=== PATIENT | female | born 1980 | race Caucasian/White ===

== ENCOUNTER 2022-08-25 16:49 | Outpatient (CLI) | payer OTHER, SELFPAY ==
[2022-08-25 22:54] LABS: Chloride* 100 mmol/L (96-114); Potassium* 4.1 mmol/L (3.6-5.1); Sodium* 136 mmol/L (135-149)
[2022-08-25 22:55] LABS: Basophils Absolute Auto 0.04 K/uL (0.00-0.30); Basophils Percent Auto 0.5 % (0.0-3.0); Eosinophils Absolute Auto 0.23 K/uL (0.00-0.50); Eosinophils Percent Auto 3.1 % (0.0-7.0); Hematocrit 38.5 % (33.0-51.0); Hemoglobin* 12.3 gm/dL (12.0-16.0); Immature Granulocytes Abs Auto 0.04 K/uL (0.00-0.30); Immature Granulocytes Pct Auto 0.5 %; Lymphocytes Absolute Auto 3.01 K/uL (0.90-2.90); Lymphocytes Percent Auto 40.4 % (20-44); Mean Corpuscular HGB Conc 32 gm/dL (32-36); Mean Corpuscular Hemoglobin 25 pg (26-34); Mean Corpuscular Volume 79 fL (80-100); Monocytes Percent Auto 5.2 % (0.0-11.0); Neutrophils Absolute Auto 3.74 K/uL (1.7-7.0); Neutrophils Percent Auto 50.3 % (42.0-72.0); Platelet Count* 372 K/uL (140-440); RDW Coefficient of Variation % 16.3 % (11.5-15.5); Red Blood Count 4.89 m/uL (4.00-5.20); White Blood Count* 7.45 K/uL (4.50-11.00)
[2022-08-25 22:57] LABS: Carbon Dioxide* 27 mmol/L (20-32); Creatinine* 0.5 mg/dL (0.5-1.5); Estimated Glomerular Filt Rate 122 ml/min
[2022-08-25 22:58] LABS: Blood Urea Nitrogen* 10 mg/dL (5-24); Calcium* 9.6 mg/dL (8.4-10.6); Glucose* 237 mg/dL (60-115)
[2022-08-25 23:10] LABS: Slide Review Reflex No
[2022-08-26 08:33] LABS: Vitamin D 25 Hydroxy* 27 ng/mL (30-80)
== END 2022-08-25 16:50 | disposition home or self-care (01) ==
PROVIDERS: PCP Family Medicine; Visit Provider Family Medicine
DX: E66.01 Morbid (severe) obesity due to excess calories (principal); E03.9 Hypothyroidism, unspecified; E55.9 Vitamin D deficiency, unspecified; Z13.9 Encounter for screening, unspecified
CPT/HCPCS: 80048; 82306; 83036; 84443; 85025

== ENCOUNTER 2023-03-26 08:25 | Outpatient (CLI) | payer OTHER, SELFPAY | END 2023-03-26 08:26 | disposition home or self-care (01) | PROVIDERS: PCP Family Medicine; Visit Provider Family Medicine | DX: E11.9 Type 2 diabetes mellitus without complications (principal); E55.9 Vitamin D deficiency, unspecified; E03.9 Hypothyroidism, unspecified | CPT/HCPCS: 82306; 84439; 84443 ==

== ENCOUNTER 2023-08-21 16:37 | Outpatient (CLI) | payer OTHER, SELFPAY | END 2023-08-21 16:38 | disposition home or self-care (01) | LOC: NFLDREF 16:39 | PROVIDERS: PCP Family Medicine; Visit Provider Family Medicine | DX: E03.9 Hypothyroidism, unspecified (principal); E11.9 Type 2 diabetes mellitus without complications; E55.9 Vitamin D deficiency, unspecified; E66.01 Morbid (severe) obesity due to excess calories | CPT/HCPCS: 80048; 82306; 84439; 84443 ==

== ENCOUNTER 2023-10-02 13:33 | Outpatient (CLI) | payer OTHER, SELFPAY | END 2023-10-02 13:34 | disposition home or self-care (01) | LOC: NFLDREF 10-06 19:00 | PROVIDERS: PCP Family Medicine; Referring Provider Family Medicine; Visit Provider Family Medicine | DX: R30.0 Dysuria (principal) | CPT/HCPCS: 87086 ==

== ENCOUNTER 2023-11-12 16:08 | Outpatient (CLI) | payer OTHER, SELFPAY | END 2023-11-12 16:09 | disposition home or self-care (01) | LOC: NFLDREF 11-20 12:21 | PROVIDERS: PCP Family Medicine; Visit Provider Family Medicine | DX: E55.9 Vitamin D deficiency, unspecified (principal); E03.9 Hypothyroidism, unspecified; N39.0 Urinary tract infection, site not specified; R53.83 Other fatigue | CPT/HCPCS: 80048; 82306; 84439; 84443; 87086 ==

== ENCOUNTER 2023-11-23 13:53 | Outpatient (CLI) | payer OTHER, SELFPAY | END 2023-11-23 13:54 | disposition home or self-care (01) | LOC: FBOREF 13:55 | PROVIDERS: PCP Family Medicine; Visit Provider Family Medicine | DX: D64.9 Anemia, unspecified (principal) | CPT/HCPCS: 82728 ==

== ENCOUNTER 2023-12-11 08:00 | Outpatient (RCR) | payer OTHER, SELFPAY ==
--- NOTE | 2023-12-03 13:06 | URNOTE ---
Per Vargas IYER and per Toribio Schneider at [facility], Call ref [id number], prior auth is not required for [employer] ([id number]).
[2023-12-11 08:20] VITALS: BP 130/80; PULSE 80; RESP 16; TEMP 36.8; O2SAT 99
[2023-12-11] MEDS: 0.9 % SODIUM CHLORIDE 250 ml IV (08:30)
[2023-12-11 09:20] VITALS: BP 137/76; PULSE 79; RESP 20; TEMP 36.5; O2SAT 99
[2023-12-11 10:09] VITALS: BP 143/78; PULSE 67; RESP 16; TEMP 36.6; O2SAT 100
[2023-12-11] MEDS: IRON DEXTRAN COMPLEX 975 MG in 0.9 % SODIUM CHLORIDE 250 ml 250 ML 125 MG IVPB (10:23)
[2023-12-11 10:35] VITALS: BP 146/84; PULSE 67; RESP 16; TEMP 36.6; O2SAT 100
[2023-12-11 11:45] VITALS: BP 137/77; PULSE 68; RESP 16; TEMP 36.4; O2SAT 98
[2023-12-11 12:16] VITALS: BP 151/85; PULSE 68; RESP 16; TEMP 36.4; O2SAT 98
== END 2024-06-08 23:59 | disposition home or self-care (01) ==
LOC: CCIC 08:00
PROVIDERS: PCP Family Medicine; Referring Provider Family Medicine; Visit Provider Family Medicine
DX: D50.9 Iron deficiency anemia, unspecified (principal)
CPT/HCPCS: 96365; 96366; J1750; J7050

== ENCOUNTER 2024-02-24 15:10 | Outpatient (CLI) | payer OTHER, SELFPAY ==
--- NOTE | 2024-02-24 15:20 | CRLHL7_ITS ---
For Patients: As a result of the Century Cures Act, medical imaging exams and procedure reports are released immediately into your electronic medical record. You may view this report before your referring provider. If you have questions, please contact your health care provider. BILATERAL DIGITAL SCREENING MAMMOGRAM WITH COMPUTER-AIDED DETECTION AND TOMOSYNTHESIS CLINICAL HISTORY: Routine screening exam. COMPARISON: 01/09/2022. TECHNIQUE: Digital mammogram in CC and MLO projections including computer-aided detection (CAD). Tomosynthesis was used in this interpretation. BREAST COMPOSITION: Almost entirely fat. FINDINGS: RIGHT Breast: Focal asymmetric density upper outer quadrant 10 cm from the nipple. LEFT Breast: No suspicious findings. IMPRESSION: RIGHT breast asymmetry/mass. RECOMMENDATIONS: Additional mammographic views of the RIGHT breast including 3D spot compression CC/MLO. RIGHT breast ultrasound may also be required. BI-RADS Category 0: Incomplete: Need Additional Imaging Evaluation and/or Prior Mammograms for Comparison [facility] will contact the patient for follow-up. A lay language report of this examination will be provided to the patient. Dictated by Davey Mcqueen MD @ 02/25/2024 8:54:18 AM jj/Dictated by: Davey Mcqueen MD @ 02/25/2024 8:54:00 AM (Electronically Signed)
== END 2024-02-24 15:11 | disposition home or self-care (01) ==
LOC: MAMMO 15:11
PROVIDERS: PCP Family Medicine; Visit Provider Family Medicine
DX: Z12.31 Encounter for screening mammogram for malignant neoplasm of breast (principal); N63.10 Unspecified lump in the right breast, unspecified quadrant
CPT/HCPCS: 77063; 77067

== ENCOUNTER 2024-03-08 08:26 | Outpatient (CLI) | payer OTHER, SELFPAY ==
--- OUTSIDE RECORDS SUMMARY | 2024-03-11 06:09 | XMS_ITS | Clinical Summary ---
Author Organization [facility] Address [address] [place] [address] Care Team Providers Care Inclusion Specialist Name Role Phone Unavailable Primary Care Provider Unavailabl e Social History Tobacco Use Types Packs/Day Years Used Date Smoking Tobacco: Never Assessed Sex and Gender Information Value Date Recorded Sex Assigned at Not on file Gender Identity Not on file Sexual Orientation Not on file Plan of Treatment Not on file
--- OUTSIDE RECORDS SUMMARY | 2024-03-11 06:09 | XMS_ITS | Clinical Summary ---
Author Organization [facility] Address [place], [place] [address] Care Team Providers Care School Crossing Guard Name Role Phone Davey Mac MD Primary Care Provider + Allergies Active Allergy Reactions Criticality Noted Date Comments Metoclopramide Hcl Tachycardia 12/07/2014 Hydrocodone-Acetaminophen Itching 06/28/2008 Medications Medication Sig Dispensed Refills Start Date End Date Status levothyroxine (SYNTHROID) 200 mcg tablet Take 200 mcg by mouth before breakfast. With 50 mcg for 250 mcg total dose Active levothyroxine (SYNTHROID) 50 mcg tablet Take 50 mcg by mouth before breakfast. With 200 mcg for 250 mcg total dose Active albuterol (PROVENTIL) 0.083 % neb solutionIndications:A cute respiratory failure with hypoxia (HC) Inhale 3 mL via a nebulizer every 4 hours if needed. 0 11/11/2019 Active LORazepam (ATIVAN) 0.5 mg tabIndications:Anxiet y state Take 1 tablet by mouth or nasogastric tube every 4 hours if needed. 0 11/11/2019 Active artificial tears, peg 400-propylene glycol, (SYSTANE) 0.4-0.3 % drop ophthalmicIndications :Dry eyes Place 2 Drops into both eyes every hour if needed for Dry Eyes. 0 11/11/2019 Active guar gum 4 gm (NUTRISOURCE FIBER) packetIndications:Loo se stools Take 1 Packet by mouth 3 times daily. Mix 1 packet in 4 oz of beverage/soft food. 0 11/11/2019 Active HYDROmorphone, PF, (DILAUDID) syringeIndications:Ca rdiac arrest with ventricular fibrillation (HC) Inject 0.5-1 mL intravenous every 2 hours if needed for Pain 0 11/11/2019 Active nystatin powder (MYCOSTATIN) powderIndications:Yea st dermatitis Apply topically to affected area(s) 2 times daily. 1 Bottle 11/11/2019 Active ondansetron (ZOFRAN) 4 mg/2 mL solnIndications:Nause a Inject 4 mg intravenous every 6 hours if needed for Nausea/Vomiting. 0 11/11/2019 Active oxyCODONE (ROXICODONE) 5 mg/5 mL solutionIndications:P ain Take 10 mL by mouth or nasogastric tube every 4 hours 0 11/11/2019 Active prochlorperazine (COMPAZINE) 10 mg/2 mL (5 mg/mL) injectionIndications: Nausea Inject 10 mg intravenous every 6 hours if needed for Nausea/Vomiting. 0 11/11/2019 Active QUEtiapine (SEROQUEL) 25 mg tabletIndications:Anx iety state Take 1 tablet by mouth 3 times daily. 0 11/11/2019 Active QUEtiapine (SEROQUEL) 50 mg tabletIndications:Anx iety state Take 1 tablet by mouth at bedtime. 0 11/11/2019 Active bisacodyL (DULCOLAX) 10 mg suppositoryIndication s:Constipation, unspecified constipation type Insert 1 Suppository rectally once daily if needed. 0 11/11/2019 Active sertraline (ZOLOFT) 50 mg tabletIndications:Anx iety state Take 1 tablet by mouth or nasogastric tube every morning. 0 11/12/2019 Active lansoprazole (PREVACID SOLUTAB) 30 mg disintegrating tabletIndications:Gas troesophageal reflux disease, esophagitis presence not specified Take 1 tablet by mouth or nasogastric tube once daily before a meal. 0 11/11/2019 Active buPROPion (WELLBUTRIN) 100 mg tabletIndications:Oth er depression Take 1 tablet by mouth 2 times daily before meals. 0 11/14/2019 Active LANTUS SOLOSTAR U-100 INSULIN 100 unit/mL (3 mL) penIndications:Hyperg lycemia Inject 50 Units subcutaneous every 24 hours. Product desired:LANTUS 1 box 11/14/2019 Active insulin aspart U-100 (NOVOLOG) 100 unit/mL (3 mL) solution for injectionIndications: Hypernatremia Inject 0-18 Units subcutaneous every 4 hours. < 70: treat for Hypoglycemia. 70 - 149: No corrective insulin. 150 - 199: 3 units. 200 - 249: 6 units. 250 - 299: 9 units. 300 - 349: 12 units. 350 - 399: 15 units. 400 or >: 18 units & notify MD. 0 11/14/2019 Active valproic acid (DEPAKENE) 250 mg/5 mL oral solutionIndications:A nxiety state,Agitation Take 2 mL by mouth or nasogastric tube 3 times daily. 1 Bottle 11/14/2019 Active predniSONE (DELTASONE) 20 mg tabletIndications:Acu te respiratory failure with hypoxia (HC) Take 1.5 tablets by mouth once daily with a meal. 0 11/15/2019 Active Active Problems Problem Noted Date Diagnosed Date ARDS (adult respiratory distress syndrome) 10/17 ACP (advance care planning) 2019 Overview: Patient has identified Health Care Agent(s): No BERNARDINO CARDOZA Mobile Relation: Spouse ELINA GARZA Mobile Relation: Mother Earl Alegria (dad) P:[phone] Lives with pt/spouse Patient has Advance Care Plan Documents (Health Care Directive, POLST): No, Health Care Packet given to family. Patient has identified Specific Treatment Preferences: No Specific limits to treatment preferences NOT identified: ASSUME FULL TREATMENT. Pneumonia 10/16/2019 Respiratory failure 10/16/2019 Hypothyroid 10/16/2019 Depression 10/16/2019 Cardiac arrest with ventricular fibrillation 05/2020 H/O LEEP 04/14/2016 Overview: 2004 [place]: ARIANA 2-3 & LEEP with ARIANA 1; History of CIN2 - CIN3. ASCCP recommendations: Cotesting every 3 years for 20 years. Due 03/2019 Morbid obesity with BMI of 45.0-49.9, adult 12/06 GERD (gastroesophageal reflux disease) 3 Graves disease 12/08/2012 Anxiety state, unspecified 11/26/2009 Irritable bowel syndrome 06/24/2007 Influenza A SHENG (acute kidney injury) Debility Palliative care encounter Resolved Problems Problem Noted Date Diagnosed Date Resolved Date Intestinal infection due to Clostridium difficile 11/04/2010 12/26/2014 Grave's disease 12/14/2009 12/08/2012 Supervision of other normal 03/13/2008 12/14/2009 Abdominal pain, unspecified site 06/24/2007 12/26/2014 Overview: EGD 12/2014 gastritis Encounters Date Type Department Care Team Description 03/04/2024 Lab Requisition [facility] [phone] Elvia Tanja ARINA Cesar from Last 3 Months Immunizations Name Administration Dates Next Due Influenza, IIV3 (Age >=3 years) 07/30/2010 MMR 12/24/1993 Td (Age >=7 Years) 04/18/1996 Tdap 06/28/2008 Tuberculin (PPD) 01/29/2012,01/19/2012 Family History Medical History Relation Name Comments Alcohol/Drug Father Arthritis Maternal Grandmother Diabetes Maternal Grandmother Heart Disease Maternal Grandmother Hypertension Maternal Grandmother Heart Disease Paternal Grandfather Cancer Paternal Uncle bone Relation Name Status Comments Father Maternal Grandmother Paternal Grandfather Paternal Uncle Social History Tobacco Use Types Packs/Day Years Used Date Smoking Tobacco: Former Cigarettes 0.8 8 0 09/07/1999 - 09/07/2007 Smokeless Tobacco: Never Tobacco Cessation:Counseling Given: Yes Alcohol Use Standard Drinks/Week Comments Yes 0 (1 standard drink = 0.6 oz pur e alcohol) rarely Sex and Gender Information Value Date Recorded Sex Assigned at Not on file Gender Identity Not on file Sexual Orientation Not on file Obstetrics History Para Term AB IAB SAB Ectopic Multiple Livin g Live Births 3 3 3 3 2 Date Outcome GA Total Labor Labor/2nd/3rd Weight Sex Type Anes PTL Kathy A1 A5 Name Clin 002 Term 37w 0d 17h 00m/ 2.92 kg (6 lb 7 oz) Vag Livin g lashawn Comments:high bp 004 Term 38w 0d 12h 00m/ 2.89 kg (6 lb 6 oz) Vag Livin g melissa Comments:high bp 008 Term 37w 3d 3.49 kg (7 lb 11 oz) Vag 8 9 Comments:GBS positive Last Filed Vital Signs Vital Sign Reading Time Taken Comments Blood Pressure 123/70 11/14/2019 1:00 PM CDT Pulse 92 11/14/2019 2:00 PM CDT Temperature 36.8 ??C (98.2 ??F) 11/14/2019 6:00 AM CD T Respiratory Rate 18 11/14/2019 2:00 PM CDT Oxygen Saturation 94% 11/14/2019 2:00 PM CDT Inhaled Oxygen Concentration - - Weight 146.6 kg (323 lb 3.1 oz) 11/14/2019 1:00 AM CDT Height 170.2 cm (5' 7.01) 10/16/2019 1 1:00 AM GEAR MACHINE OPERATOR Body Mass Index 50.61 10/16/2019 11:00 AM GEAR MACHINE OPERATOR Plan of Treatment Health Maintenance Due Date Last Done Comments Hepatitis C screening for age 18-79 1999 BMI (ht and wt on same day) for age 18+ 04/09/2018 04/09/2017, 10/29/2016, 10/27/2016, Additional history exists Depression screening for age 12+ 04/09/2018 04/09/2017, 10/29/2016, 10/27/2016, Additional history exists Tetanus booster 06/28/2018 06/28/2008, 04/18/1996 COVID-19 vaccine series ( season) 2023 Influenza for age 9-49 05/08/2024 07/30/2010 Pap test for age 21-65 03/03/2027 4, 08/19/2022, 08/19/2022, Additional history exists HIV for age 15-65 Completed 08/24/2007 Tdap Completed 06/28/2008 Pneumococcal series for age 6-64 Aged Out No longer eligible based on patient's age to complete this topic Procedures Procedure Name Priority Date/Time Associated Diagnosis Comments LAB TRACKING EVENT Routine 03/03/2024 2: 45 PM CDT HPV THIN PREP Routine 03/03/2024 2:45 PM CDT ANTI HIV 1/2 Routine 08/24/2007 Supervision Of Other Normal from Last 3 Months or Most Recently Relevant to Health Maintenance Results * LAB TRACKING EVENT (03/03/2024 2:45 PM CDT) Other (Other) Client Collect / Unknown 03/03/2024 2:45 PM CDT 03/04/2024 3:22 PM CDT December Tali Gan PA-C LAB BILL ONLY Performing Organization Address City/[facility]/ZIP Co de Phone Number [facility] [address] [place] [address], * HPV HIGH RISK (03/03/2024 2:45 PM CDT) TYPE 16 Negative Negative 03/08/2024 2:27 PM CDT [facility] TYPE 18 Negative Negative 03/08/2024 2:27 PM CDT [facility] OTHER HIGH RISK TYPES Negative Negative 03/08/2024 2:27 PM CDT [facility] Other (Cervical) 03/03/2024 2:45 PM CDT 03/07/2024 12:52 PM CDT Narrative [facility] - 03/08/2024 2:27 PM CDT HPV types 16, 18, 31, 33, 35, 39, 45, 51, 52, 56, 58, 59, 66 and 68 DNA were undetectable or below the pre-set threshold. Methodology: Shahram Tin 4800 HPV Test December Tali Gan PA-C MICROBIOLOGY Performing Organization Address [facility] Co de Phone Number [facility] [address] [place] [address], * (ABNORMAL) ANTI HIV 1/2 (08/24/2007) ANTI HIV 1/2 negative(E XTERNAL) [facility] Blood specimen (specimen) BLOOD SPECIMEN / Unknown 08/24/2007 Luz Wang MD SEND OUTS Performing Organization Address City/[facility]/ZIP Co de Phone Number [facility] [address] [place] [address] from Last 3 Months or Most Recently Relevant to Health Maintenance Additional Health Concerns Infection Onset Date Last Indicated Rule-Out Respiratory 10/28/2019 10/28/2019 Advance Directives * Full Code (Latest Code Status on File) Date Activated Date Inactivated Comments 10/16/2019 11:21 AM 11/14/2019 5:38 PM Care Teams School Crossing Guard Relationship Specialty Start Date End Date Davey Mac MD [address] [place] [address] PCP - General Family Practice 11/16/20
== END 2024-03-08 08:27 | disposition home or self-care (01) ==
LOC: NFLDREF 03-11 06:08
PROVIDERS: PCP Family Medicine; Referring Provider Family Medicine; Visit Provider Physician Assistant
DX: D50.9 Iron deficiency anemia, unspecified (principal); E03.9 Hypothyroidism, unspecified; Z13.220 Encounter for screening for lipoid disorders
CPT/HCPCS: 80061; 82728; 84443

== ENCOUNTER 2024-03-11 08:36 | Outpatient (CLI) | payer OTHER, SELFPAY ==
--- OUTSIDE RECORDS SUMMARY | 2024-03-11 08:38 | XMS_ITS | Clinical Summary ---
Author Organization [facility] Address [address] [place] [address] Care Team Providers Care Sfdc Technical Architect Name Role Phone Unavailable Primary Care Provider Unavailabl e Social History Tobacco Use Types Packs/Day Years Used Date Smoking Tobacco: Never Assessed Sex and Gender Information Value Date Recorded Sex Assigned at Not on file Gender Identity Not on file Sexual Orientation Not on file Plan of Treatment Not on file
--- OUTSIDE RECORDS SUMMARY | 2024-03-11 08:38 | XMS_ITS | Clinical Summary ---
Author Organization [facility] Address [place], [place] [address] Care Team Providers Care Food Technician Name Role Phone Davey Mac MD Primary [...] GARZA Mobile Relation: Mother Earl Alegria (dad) P:[phone] Lives with pt/spouse Patient has Advance Care Plan Documents (Health Care Directive, POLST): No, Health Care Packet given to family. Patient has identified Specific Treatment Preferences: No Specific limits to treatment preferences NOT identified: ASSUME FULL TREATMENT. Pneumonia 10/16/2019 Respiratory failure 10/16/2019 Hypothyroid 10/16/2019 Depression 10/16/2019 Cardiac arrest with ventricular fibrillation 05/2020 H/O LEEP 04/14/2016 Overview: 2004 [place]: ARIANA 2-3 & LEEP with ARIANA 1; [...] Department Care Team Description 03/04/2024 Lab Requisition [facility] [phone] Elvia Tanja ARINA Cesar from Last 3 [...] cm (5' 7.01) 10/16/2019 1 1:00 AM CASE MANAGEMENT MANAGER Body Mass Index 50.61 10/16/2019 11:00 AM CASE MANAGEMENT MANAGER Plan of Treatment Health Maintenance Due Date [...] PA-C LAB BILL ONLY Performing Organization Address City/[facility]/ZIP Co de Phone Number [facility] [address] [place] [address], * HPV HIGH RISK (03/03/2024 2:45 PM CDT) TYPE 16 Negative Negative 03/08/2024 2:27 PM CDT [facility] TYPE 18 Negative Negative 03/08/2024 2:27 PM CDT [facility] OTHER HIGH RISK TYPES Negative Negative 03/08/2024 2:27 PM CDT [facility] Other (Cervical) 03/03/2024 2:45 PM CDT 03/07/2024 12:52 PM CDT Narrative [facility] - 03/08/2024 2:27 PM CDT HPV types 16, 18, 31, 33, 35, 39, 45, 51, 52, 56, 58, 59, 66 and 68 DNA were undetectable or below the pre-set threshold. Methodology: Shahram Tin 4800 HPV Test December Tali Gan PA-C MICROBIOLOGY Performing Organization Address [facility] Co de Phone Number [facility] [address] [place] [address], * (ABNORMAL) ANTI HIV 1/2 (08/24/2007) ANTI HIV 1/2 negative(E XTERNAL) [facility] Blood specimen (specimen) BLOOD SPECIMEN / Unknown 08/24/2007 Luz Wang MD SEND OUTS Performing Organization Address City/[facility]/ZIP Co de Phone Number [facility] [address] [place] [address] from Last 3 Months or Most Recently Relevant to Health Maintenance Additional Health Concerns Infection Onset Date Last Indicated Rule-Out Respiratory 10/28/2019 10/28/2019 Advance Directives * Full Code (Latest Code Status on File) Date Activated Date Inactivated Comments 10/16/2019 11:21 AM 11/14/2019 5:38 PM Care Teams Food Technician Relationship Specialty Start Date End Date Davey Mac MD [address] [place] [address] PCP - General Family Practice 11/16/20
--- NOTE | 2024-03-11 08:45 | CRLHL7_ITS ---
For Patients: As a result of the Cures Act, medical imaging exams and procedure reports are released immediately into your electronic medical record. You may view this report before your referring provider. If you have questions, please contact your health care provider. DIGITAL DIAGNOSTIC RIGHT MAMMOGRAM USING TOMOSYNTHESIS AND COMPUTER-AIDED DETECTION RIGHT BREAST ULTRASOUND CLINICAL HISTORY: RIGHT breast mass/asymmetry. COMPARISON: 02/24/2024. TECHNIQUE: Digital RIGHT mammogram in two projections with computer-aided detection. Tomosynthesis was used in this interpretation. Real-time ultrasound imaging of RIGHT breast with imaging documentation. BREAST COMPOSITION: The breast is almost entirely fatty. FINDINGS: 3D spot compression CC/MLO RIGHT breast mammogram images submitted. Persistent nodular density present on the MLO spot compression view in the upper outer quadrant. No architectural distortion. No suspicious calcifications. Targeted RIGHT breast ultrasound performed. At 10 o`clock 7 cm from the nipple, there is a benign intramammary lymph node measuring 5 x 8 x 10 millimeters. No abnormal vascularity. Normal central fatty hilum. IMPRESSION: Benign intramammary lymph node RIGHT breast 10 o`clock 7 cm from the nipple measuring 1 cm. No suspicious findings. RECOMMENDATIONS: Annual bilateral screening mammography. Results and recommendations discussed with the patient. BI-RADS Category 2: Benign A lay language report of this examination will be provided to the patient. Dictated by Davey Mcqueen MD @ 03/11/2024 9:52:03 AM jj/Dictated by: Davey Mcqueen MD @ 03/11/2024 9:52:00 AM (Electronically Signed)
--- NOTE | 2024-03-11 09:15 | CRLHL7_ITS ---
For Patients: As a result of the Cures Act, medical imaging exams and procedure reports are released immediately into your electronic medical record. You may view this report before your referring provider. If you have questions, please contact your health care provider. PLEASE SEE DIGITAL DIAGNOSTIC RIGHT MAMMOGRAM PERFORMED SAME DAY CRL:rubin conklin/Dictated by: Davey Mcqueen MD @ 03/11/2024 9:52:00 AM (Electronically Signed)
== END 2024-03-11 08:37 | disposition home or self-care (01) ==
LOC: MAMMO 08:36
PROVIDERS: PCP Family Medicine; Visit Provider Family Medicine
DX: N63.10 Unspecified lump in the right breast, unspecified quadrant (principal); R92.8 Other abnormal and inconclusive findings on diagnostic imaging of breast
CPT/HCPCS: 76642; 77065; G0279

== ENCOUNTER 2024-11-14 16:29 | Outpatient (CLI) | payer OTHER, SELFPAY | END 2024-11-14 16:30 | disposition home or self-care (01) | PROVIDERS: PCP Family Medicine; Visit Provider Family Medicine | DX: E03.9 Hypothyroidism, unspecified (principal); E55.9 Vitamin D deficiency, unspecified | CPT/HCPCS: 82306; 84439; 84443 ==

== ENCOUNTER 2025-03-07 09:30 | Outpatient (CLI) | payer OTHER, SELFPAY ==
[2025-03-08 18:10] LABS: HPV Source Cervix
== END 2025-03-07 09:31 | disposition home or self-care (01) ==
PROVIDERS: PCP Family Medicine; Visit Provider Physician Assistant
DX: Z12.4 Encounter for screening for malignant neoplasm of cervix (principal); Z11.51 Encounter for screening for human papillomavirus (HPV)
CPT/HCPCS: 87624; 87625; 88141; 88142

== ENCOUNTER 2025-05-22 17:01 | Outpatient (CLI) | payer OTHER, SELFPAY | END 2025-05-22 17:02 | disposition home or self-care (01) | PROVIDERS: PCP Family Medicine; Visit Provider Family Medicine | DX: E03.9 Hypothyroidism, unspecified (principal); E55.9 Vitamin D deficiency, unspecified | CPT/HCPCS: 80048; 82306; 84443 ==

== ENCOUNTER 2025-07-07 15:00 | Outpatient (CLI) | payer OTHER, SELFPAY ==
--- NOTE | 2025-07-07 15:20 | CRLHL7_ITS ---
For Patients: As a result of the Century Cures Act, medical imaging exams and procedure reports are released immediately into your electronic medical record. You may view this report before your referring provider. If you have questions, please contact your health care provider. INDICATION: BILATERAL SCREENING MAMMOGRAM, ASYMPTOMATIC 44 Y/O FEMALE COMPARISON: 03/11/2024, 02/24/2024, 01/09/2022 TECHNIQUE: Digital mammogram in CC and MLO projections including computer-aided detection (CAD) and tomosynthesis. BREAST COMPOSITION: The breasts are almost entirely fatty. FINDINGS: No suspicious findings. ASSESSMENT: BI-RADS 2 Benign RECOMMENDATION: Annual screening mammogram. A lay language report of this examination will be provided to the patient. Dictated by: Davey Mcqueen MD @ 07/10/2025 09:57:44 (Electronically Signed)
== END 2025-07-07 15:01 | disposition home or self-care (01) ==
LOC: MAMMO 15:01
PROVIDERS: PCP Family Medicine; Visit Provider Physician Assistant
DX: Z12.31 Encounter for screening mammogram for malignant neoplasm of breast (principal)
CPT/HCPCS: 77063; 77067